=== PATIENT | female | born 1975 | race Caucasian/White ===

== ENCOUNTER 2018-02-12 15:28 | Inpatient (IN) | payer MEDICAID ==
[~2018-02-12] VITALS: Ht 160 cm; Wt 79.1 kg
[2018-02-12 15:38] VITALS: Ht 160 cm; Wt 79.1 kg
[2018-02-12 16:42] LABS: PLATELET COUNT 249 x10^3mcL (130-400)
[2018-02-12 16:44] LABS: ALBUMIN 3.3 g/dL (3.4-5.0); ALKALINE PHOSPHATASE 103 U/L (46-116); ALT/SGPT 32 U/L (14-59); AST/SGOT 25 U/L (15-37); BILIRUBIN TOTAL 0.5 mg/dL (0.20-1.00); CARBON DIOXIDE 20.7 mmol/L (21-32); CHLORIDE SERUM 98 mmol/L (98-107); CREATININE SERUM 0.9 mg/dL (0.6-1.0); GFR1 > 60 mL/min; GLUCOSE SERUM 402 mg/dL (74-106); LIPASE 70 IU/L (73-393); POTASSIUM SERUM 3.2 mmol/L (3.5-5.1); SODIUM SERUM 130 mmol/L (136-145); TOTAL PROTEIN, SERUM 7.7 g/dL (6.4-8.2)
[2018-02-12 16:50] LABS: UA SPECIFIC GRAVITY 1.015 (1.005-1.035); microscopic required? YES; urine erythrocyte 3+ (NEGATIVE)
[2018-02-12 16:56] LABS: RED CELL DISTRIBUTION WIDTH 35.2 % (11.5-14.5)
[2018-02-12 17:29] LABS: BAND NEUTROPHIL 7 % (0-10); BASOPHIL 0 % (0-2); MONOCYTE 4 % (0-7); SEGMENTED NEUTROPHILS 83 % (37-75); rbc morphology (normal/abnorm) ABNORMAL (NORMAL)
[2018-02-12] MEDS ORDERED: NOR5 PO (18:18)
[2018-02-12 18:41] LABS: AMPHETAMINE QUAL UR NONE DETECTED (See below)
[2018-02-12 18:43] LABS: CHOLESTEROL/HDL RATIO 5.3; PHOSPHOROUS 2.5 mg/dL (2.5-4.9); T3 TOTAL 0.82 ng/mL
[2018-02-12 18:53] LABS: FREE T4 1.2 ng/dL (0.76-1.46); FREE THYROXINE INDEX 3.1 ug/dL (1.4-4.5); T4(THYROXINE) 8.3 ug/dL (4.7-13.3)
[2018-02-12 19:15] VITALS: BP 150/70
[2018-02-12 21:21] VITALS: BP 181/85
[2018-02-12 22:31] VITALS: BP 156/84
[2018-02-13] VITALS (10 sets, daily range): BP systolic 85–150; BP diastolic 52–76
[2018-02-13 06:32] LABS: CALCIUM 7.4 mg/dL (8.5-10.1); CARBON DIOXIDE 17.2 mmol/L (21-32); CHLORIDE SERUM 107 mmol/L (98-107); CREATININE SERUM 0.8 mg/dL (0.6-1.0); GFR1 > 60 mL/min; GLUCOSE SERUM 283 mg/dL (74-106); POTASSIUM SERUM 3.2 mmol/L (3.5-5.1); SODIUM SERUM 138 mmol/L (136-145)
[2018-02-13 08:18] LABS: PLATELET COUNT 187 x10^3mcL (130-400)
[2018-02-13 08:19] LABS: RED CELL DISTRIBUTION WIDTH 35.3 % (11.5-14.5)
[2018-02-13 09:51] LABS: BAND NEUTROPHIL 25 % (0-10); BASOPHIL 0 % (0-2); MONOCYTE 3 % (0-7); SEGMENTED NEUTROPHILS 69 % (37-75); burr cell (echinocyte) 1+; rbc morphology (normal/abnorm) ABNORMAL (NORMAL); schistocyte (helmet cell) 1+; target cell (codocyte) 1+; tear drop cell (dacryocyte) 1+
[2018-02-13 09:52] LABS: PLATELET MORPHOLOGY GIANT PLATELET SEEN
[2018-02-14 06:36] LABS: CALCIUM 8.5 mg/dL (8.5-10.1); CARBON DIOXIDE 16.9 mmol/L (21-32); CHLORIDE SERUM 105 mmol/L (98-107); CREATININE SERUM 0.7 mg/dL (0.6-1.0); GFR1 > 60 mL/min; GLUCOSE SERUM 179 mg/dL (74-106); PHOSPHOROUS 1.7 mg/dL (2.5-4.9); POTASSIUM SERUM 3.5 mmol/L (3.5-5.1); SODIUM SERUM 137 mmol/L (136-145)
[2018-02-14 06:40] LABS: PLATELET COUNT 217 x10^3mcL (130-400)
[2018-02-14 07:59] VITALS: BP 138/63
[2018-02-14 08:05] LABS: BAND NEUTROPHIL 4 % (0-10); BASOPHIL 0 % (0-2); MONOCYTE 1 % (0-7); SEGMENTED NEUTROPHILS 93 % (37-75)
[2018-02-14 08:08] LABS: PLATELET MORPHOLOGY LARGE PLATELET SEEN
[2018-02-14 08:10] LABS: burr cell (echinocyte) 1+; rbc morphology (normal/abnorm) ABNORMAL (NORMAL)
[2018-02-14 13:01] VITALS: BP 150/77
[2018-02-14 14:20] VITALS: BP 150/77
[2018-02-14 16:39] VITALS: BP 169/87
[2018-02-14 20:14] VITALS: BP 169/85
[2018-02-15 05:29] VITALS: BP 159/81
[2018-02-15 08:55] VITALS: BP 176/80
[2018-02-15 09:55] LABS: PLATELET COUNT 244 x10^3mcL (130-400)
[2018-02-15 10:08] LABS: CARBON DIOXIDE 24.3 mmol/L (21-32); CHLORIDE SERUM 100 mmol/L (98-107); CREATININE SERUM 0.7 mg/dL (0.6-1.0); GFR1 > 60 mL/min; GLUCOSE SERUM 150 mg/dL (74-106); MAGNESIUM 1.7 mg/dL (1.8-2.4); PHOSPHOROUS 3.4 mg/dL (2.5-4.9); POTASSIUM SERUM 3.3 mmol/L (3.5-5.1); SODIUM SERUM 136 mmol/L (136-145)
[2018-02-15 12:26] LABS: BAND NEUTROPHIL 5 % (0-10)
[2018-02-15 12:27] LABS: ATYPICAL LYMPH 3 %; MONOCYTE 5 % (0-7); SEGMENTED NEUTROPHILS 80 % (37-75); rbc morphology (normal/abnorm) ABNORMAL (NORMAL)
[2018-02-15 12:28] LABS: PLATELET MORPHOLOGY PLATELETS NORMAL; ovalocyte/elliptocyte 1+
== END 2018-02-15 12:02 | disposition left against medical advice (07) | DRG 720 ==
LOC: ED 15:28 → DU 18:14
PROVIDERS: Emergency Medicine; Internal Medicine
DX: A41.9 Sepsis, unspecified organism (principal); N17.0 Acute kidney failure with tubular necrosis; E87.2 Acidosis; E11.65 Type 2 diabetes mellitus with hyperglycemia; E87.1 Hypo-osmolality and hyponatremia; E44.1 Mild protein-calorie malnutrition; D68.69 Other thrombophilia; R65.20 Severe sepsis without septic shock; N10 Acute pyelonephritis; E87.6 Hypokalemia; R80.9 Proteinuria, unspecified; E78.5 Hyperlipidemia, unspecified; E78.1 Pure hyperglyceridemia; Z68.31 Body mass index [BMI] 31.0-31.9, adult; Z53.29 Procedure and treatment not carried out because of patient's decision for other reasons
CPT/HCPCS: 36600; 82962; 84439; J0696; J1885; J3480; J7030; Q0092; Q0162